=== PATIENT | male | born 1995 ===

== ENCOUNTER 2017-02-04 23:41 | Emergency (ER) | payer SELFPAY ==
[2017-02-04 23:49] VITALS: O2SAT 99
[2017-02-05] MEDS ORDERED: Lidocaine 2% Inj (20ml) ONE (00:46)
[2017-02-05] MEDS ORDERED: Amoxicillin-Clav 875-125 mg Tab PO STA (01:15)
--- NOTE | 2017-02-05 01:15 | C.PDOC ---
History Of Present Illness Patient is a 21 year old male who presents to the ER with a complaint of left thumb pain and laceration after slamming a door on it. Patient denies any weakness or numbness. Time Seen by Provider: 02/04/17 23:53 Chief Complaint (Nursing): Abnormal Skin Integrity History Per: Patient History/Exam Limitations: no limitations Onset/Duration Of Symptoms: Hrs Current Symptoms Are (Timing): Still Present Location Of Injury: Left: Hand (Thumb) Additional History Per: Patient Past Medical History Reviewed: Historical Data, Nursing Documentation, Vital Signs Vital Signs: Last Vital Signs Temp 98.3 F 02/05/17 02:22 Pulse 72 02/05/17 02:22 Resp 82 H 02/05/17 02:22 BP 122/88 02/05/17 02:22 Pulse Ox 99 02/05/17 02:22 - Medical History PMH: Asthma Surgical History: No Surg Hx Family History: States: Unknown Family Hx - Social History Hx Alcohol Use: Yes Hx Substance Use: No - Immunization History Hx Tetanus Toxoid Vaccination: Yes Hx Influenza Vaccination: Yes Hx Pneumococcal Vaccination: No Review Of Systems Musculoskeletal: Positive for: Hand Pain (Left thumb) Neurological: Negative for: Weakness, Numbness Physical Exam - Physical Exam Appears: Well, Non-toxic Skin: Normal Color, Warm, Dry Head: Atraumatic, Normacephalic Eye(s): bilateral: Normal Inspection, PERRL Oral Mucosa: Moist Extremity: Tenderness (Distal aspect of left thumb. ), Capillary Refill (< 2sec) , No Deformity, No Swelling, Other (Left thumb, partial avulsion of nail ( detached at base of nail bed but attached at lateral ends) with 1 cm at base of left thumb nailbed. No gross subungal hematoma.) Extremity: Bilateral: Normal Color And Temperature Pulses: Left Radial: Normal, Right Radial: Normal Neurological/Psych: Oriented x3, Normal Speech, Normal Cognition ED Course And Treatment O2 Sat by Pulse Oximetry: 99 (Room air) Pulse Ox Interpretation: Normal Progress Note: Augmentin PO and Bacitracin ointment administered. Left hand x- ray ordered, results showed a distal tip fracture of the thumb. Digital block will be done on left thumb, nail will be pushed back into place and held down with sutures. Laceration - Laceration Repair Left thumb Wound Length (In cm): 1 cm Description Of Wound: Linear (Proximal to nail bed) Wound Cleansed With: Sterile Saline Anesthesia: Lidocaine 2% Wound Examination: Irrigated With Saline Wound Closure: Suture (3) Suture Technique And Material Used: Nylon (4.0) Wound Complexity: Simple Disposition Counseled Patient/Family Regarding: Diagnosis - Disposition Referrals: Leanne Lamb MD [Provisional Staff] - Disposition: HOME/ ROUTINE Disposition Time: 01:15 Condition: STABLE Additional Instructions: Please follow up with Hand doctor in 2 days- Call for appointments Take antibiotic prescribed and pain meds Keep finger clean and dry May apply antibiotic ointment Return to ER if worse Prescriptions: Amoxicillin/Clavulanate [Augmentin 875 MG-125 MG] 1 tab PO BID #14 tab Ibuprofen [Motrin] 600 mg PO Q6H #30 tab Instructions: Finger Fracture (ED), Finger Laceration (ED) Forms: Work Excuse Print Language: OCCITAN - Clinical Impression Clinical Impression: Open fracture of finger - Scribe Statement The provider has reviewed the documentation as recorded by the Ileanaibgurjit Holliday All medical record entries made by the Solomon were at my direction and personally dictated by me. I have reviewed the chart and agree that the record accurately reflects my personal performance of the history, physical exam, medical decision making, and the department course for this patient. I have also personally directed, reviewed, and agree with the discharge instructions and disposition.
[2017-02-05] MEDS ORDERED: Amoxicillin-Clav 875-125 mg Tab PO ONE (01:25)
[2017-02-05] MEDS ORDERED: Bacitracin 500 Units/gm Oint Foilpak UD ONE (01:28)
[2017-02-05] MEDS ORDERED: Bacitracin Ointment 30 GM TUBE TOP ONE (01:34)
[2017-02-05 02:27] VITALS: BP 122/88; PULSE 72; RESP 82; TEMP 98.3
--- NOTE | 2017-02-05 08:17 | RAD ---
PROCEDURE: Left Thumb radiographs. HISTORY: r/o fx COMPARISON: None. TECHNIQUE: AP radiograph of the left hand, as well as spot oblique and lateral images of thumb were obtained. FINDINGS: LEFT THUMB: First distal phalangeal tuft fracture with 1 mm separation of fracture fragments Remainder of the left hand (as seen on the AP view) grossly unremarkable. JOINTS: Normal. SOFT TISSUES: Normal. OTHER FINDINGS: None. IMPRESSION: First distal phalangeal fracture
== END 2017-02-05 02:21 | disposition home or self-care (01) ==
LOC: C.ER 23:41
DX: S62.522B Displaced fracture of distal phalanx of left thumb, initial encounter for open fracture (principal); W23.1XXA Caught, crushed, jammed, or pinched between stationary objects, initial encounter; Y92.89 Other specified places as the place of occurrence of the external cause